=== PATIENT | female | born 1960 | race Hispanic/Latino ===

== ENCOUNTER 2017-12-11 22:09 | Emergency (ER) | payer MEDICAID, OTHER ==
[2017-12-11 22:23] VITALS: BP 143/93; PULSE 89; RESP 18; TEMP 97.7; O2SAT 96
--- NOTE | 2017-12-12 03:49 | C.PDOC ---
History Of Present Illness 57 year old female, with Hx of osteoarthritis, comes in to ED complaining of pain and swelling to left knee x1 week. Denies any trauma, weakness, or numbness. Time Seen by Provider: 12/11/17 22:48 Chief Complaint (Nursing): Lower Extremity Problem/Injury History Per: Patient History/Exam Limitations: no limitations Onset/Duration Of Symptoms: Days Current Symptoms Are (Timing): Still Present Past Medical History Reviewed: Historical Data, Nursing Documentation, Vital Signs Vital Signs: Last Vital Signs Temp 97.7 F 12/11/17 22:17 Pulse 89 12/11/17 22:17 Resp 18 12/11/17 22:17 BP 143/93 H 12/11/17 22:17 Pulse Ox 96 12/11/17 22:17 - Medical History PMH: Anxiety, HTN, Hypercholesterolemia, Chronic Pain (Right Knee Pain) Family History: States: No Known Family Hx - Social History Hx Tobacco Use: No Hx Alcohol Use: Yes Hx Substance Use: No - Immunization History Hx Tetanus Toxoid Vaccination: No Hx Influenza Vaccination: No Hx Pneumococcal Vaccination: No Review Of Systems Except As Marked, All Systems Reviewed And Found Negative. Constitutional: Negative for: Fever, Chills Musculoskeletal: Positive for: Other (Pain and swelling to L knee) Neurological: Negative for: Weakness, Numbness Physical Exam - Physical Exam Appears: Non-toxic, No Acute Distress Skin: Warm, Dry Head: Atraumatic, Normacephalic Eye(s): bilateral: Normal Inspection Oral Mucosa: Moist Extremity: Tenderness (to R knee), No Pedal Edema, Capillary Refill (less than 2 seconds), No Deformity, Swelling (of R knee), Other (no warmth or erythema) Extremity: Bilateral: Atraumatic, Normal Color And Temperature Pulses: Left Dorsalis Pedis: Normal, Right Dorsalis Pedis: Normal Neurological/Psych: Oriented x3, Normal Speech, Normal Motor, Normal Sensation Gait: Steady ED Course And Treatment O2 Sat by Pulse Oximetry: 96 (RA) Pulse Ox Interpretation: Normal Progress Note: Patient had corticosteroid injection to right knee several times but not to left knee.sPt offered toradol IM- states has not helped in the past.Pt is requesting oxycontin but it was explained to her that narcotics cannot be prescribed for chronic pain. Patient complained and asked for percocet and requested other narcotics PO in the ER. Then pt agreed to take toradol IM but left prior to meds were given Disposition - Disposition Disposition: ELOPEMENT - ER ONLY Disposition Time: 04:21 Condition: UNKNOWN Forms: [facility] (Faroese) - Clinical Impression Clinical Impression: Osteoarthritis - PA / [employer] / Resident Statement MD/DO has reviewed & agrees with the documentation as recorded. - Scribe Statement The provider has reviewed the documentation as recorded by the Scribe Thu Hester All medical record entries made by the Pazibfahad were at my direction and personally dictated by me. I have reviewed the chart and agree that the record accurately reflects my personal performance of the history, physical exam, medical decision making, and the department course for this patient. I have also personally directed, reviewed, and agree with the discharge instructions and disposition.
== END 2017-12-11 23:15 | disposition left against medical advice (07) ==
LOC: C.ER 22:09
DX: M19.90 Unspecified osteoarthritis, unspecified site (principal)

== ENCOUNTER 2018-03-02 09:44 | Emergency (ER) | payer MEDICAID, OTHER ==
[2018-03-02 09:50] VITALS: TEMP 97.5
[2018-03-02] MEDS ORDERED: Albuterol 0.083% Inhal Sol (2.5 mg/3 mL) UD INH ONE (10:15)
[2018-03-02] MEDS ORDERED: Albuterol 0.083% Inhal Sol (2.5 mg/3 mL) UD ONE (10:24)
--- NOTE | 2018-03-02 10:26 | C.PDOC ---
History Of Present Illness 57 year old female comes in to ED complaining of bilateral knee pain for the past several weeks. Patient initially denies any trauma but states that every time she tries to walk, she would fall down due to the knee pain. States her left knee is painful and swollen. Patient also complains of left rib pain that worsens when she takes a very deep breath. Otherwise she denies any chest pain, SOB, fever, or cough. Time Seen by Provider: 03/02/18 10:05 Chief Complaint (Nursing): Lower Extremity Problem/Injury History Per: Patient History/Exam Limitations: no limitations Onset/Duration Of Symptoms: Days Current Symptoms Are (Timing): Still Present Past Medical History Reviewed: Historical Data, Nursing Documentation, Vital Signs Vital Signs: Last Vital Signs Temp 97.5 F L 03/02/18 09:47 Pulse 91 H 03/02/18 09:47 Resp 18 03/02/18 09:47 BP 157/108 H 03/02/18 09:47 Pulse Ox 99 03/02/18 09:47 - Medical History PMH: Anxiety, HTN, Hypercholesterolemia, Chronic Pain (Right Knee Pain) Family History: States: No Known Family Hx - Social History Hx Tobacco Use: No Hx Alcohol Use: Yes Hx Substance Use: No - Immunization History Hx Tetanus Toxoid Vaccination: No Hx Influenza Vaccination: No Hx Pneumococcal Vaccination: No Review Of Systems Except As Marked, All Systems Reviewed And Found Negative. Constitutional: Negative for: Fever Cardiovascular: Negative for: Chest Pain Respiratory: Negative for: Cough, Shortness of Breath Musculoskeletal: Positive for: Other (Bilateral knee pain; L knee swelling; L rib pain) Physical Exam - Physical Exam Appears: Non-toxic, No Acute Distress Skin: Warm, Dry Head: Atraumatic, Normacephalic Eye(s): bilateral: Normal Inspection Oral Mucosa: Moist Neck: Supple Chest: Symmetrical Cardiovascular: Rhythm Regular, No Murmur Respiratory: Normal Breath Sounds, No Rales, No Rhonchi, No Wheezing Gastrointestinal/Abdominal: Soft, No Tenderness Extremity: Swelling (mild swelling of L knee, no erythema, no open wound, no lesions) Extremity: Bilateral: Other (Full ROM of both knee) Neurological/Psych: Oriented x3, Normal Speech, Normal Motor, Normal Sensation Gait: Steady ED Course And Treatment O2 Sat by Pulse Oximetry: 99 (RA) Pulse Ox Interpretation: Normal - Radiology CXR: Interpreted by Me, Viewed By Me CXR Interpretation: No: Infiltrates, Fracture, Pnemothorax, Other (Consolidation) - Other Rad Knee X-Ray X-Ray: Interpreted by Me, Viewed By Me Interpretation: No acute fractures. Osteophytes alongside tibial plateau and distal end of femur on the right knee. Medical Decision Making Medical Decision Making: Impression: Pleuritic pain, Arthritis Plan: --Knee X-Ray --Rib X-Ray --Albuterol nebulizer --Toradol 30 mg IVP Disposition - Disposition Referrals: Onofre Khan MD [Staff Provider] - Disposition: HOME/ ROUTINE Disposition Time: 12:05 Condition: IMPROVED Additional Instructions: Follow up with Dr Khan in a few days. Call for an appointment as soon as possible. Prescriptions: Ibuprofen [Motrin] 600 mg PO Q6 #20 tab Instructions: Pleuritic Chest Pain, Chronic Knee Pain Forms: [facility] ([place] Islander) - Clinical Impression Clinical Impression: Chronic knee pain, Costochondritis - Scribe Statement The provider has reviewed the documentation as recorded by the Lauren Hester Provider Attestation: All medical record entries made by the Pazibfahad were at my direction and personally dictated by me. I have reviewed the chart and agree that the record accurately reflects my personal performance of the history, physical exam, medical decision making, and the department course for this patient. I have also personally directed, reviewed, and agree with the discharge instructions and disposition.
[2018-03-02 12:06] VITALS: BP 146/94; PULSE 84; RESP 16
--- NOTE | 2018-03-02 12:42 | RAD ---
Date of service: 03/02/2018 PROCEDURE: Bilateral Knee Radiographs. HISTORY: pain when walking COMPARISON: None. FINDINGS: BONES: Right Knee: No acute fracture. Curvilinear calcific density adjacent to the medial epicondyle may be the result of old avulsion injury. Left Knee: Normal. No fracture. JOINTS: Right Knee: Medial osteoarthritis. Lateral and patellofemoral compartments are grossly preserved. Left knee: Medial osteoarthritis. Lateral and patellofemoral compartments are grossly preserved. SOFT TISSUES: Right Knee: Normal. Left Knee: Normal. JOINT EFFUSION: Right Knee: None. Left Knee: None. OTHER FINDINGS: None. IMPRESSION: Bilateral medial osteoarthritis. Possible old avulsion injury at the right medial epicondyle. No acute fracture.
--- NOTE | 2018-03-02 12:46 | RAD ---
Date of service: 03/02/2018 PROCEDURE: Radiographs of the Chest and Left Ribs. HISTORY: pain on breathing COMPARISON: None available. TECHNIQUE: Frontal radiograph of the chest and multiple oblique radiographs of the left ribs were obtained. FINDINGS: LEFT RIBS: There are fractures of the left 8th 9th and 10th ribs. There may be a 2 part fracture of the 8th rib. These fractures are minimally displaced. LUNGS: Clear. PLEURA: No pneumothorax or pleural fluid. CARDIOVASCULAR: Normal cardiac size. No pulmonary vascular congestion. No aortic atherosclerotic calcification present OTHER FINDINGS: None. IMPRESSION: Fractures of the left 8th through 10th ribs, minimally displaced. No pneumothorax.
[2018-03-02 13:10] VITALS: O2SAT 99
== END 2018-03-02 12:05 | disposition home or self-care (01) ==
LOC: C.ER 09:44
DX: G89.29 Other chronic pain (principal); M25.561 Pain in right knee; M25.562 Pain in left knee; M94.0 Chondrocostal junction syndrome [Tietze]; I10 Essential (primary) hypertension; E78.00 Pure hypercholesterolemia, unspecified
CPT/HCPCS: 71100; 73562; 96374; 99283; J1885

== ENCOUNTER 2018-03-09 04:35 | Emergency (ER) | payer OTHER ==
[2018-03-09 04:48] VITALS: BP 125/86; PULSE 68; RESP 18; TEMP 97.7; O2SAT 97
--- NOTE | 2018-03-09 05:16 | C.PDOC ---
History Of Present Illness 57 year old female presents stating she has a Hx of insomnia and it taking xanax but it is not helping. She is requesting to have her medications changed. Patient also reports a right ear ache and sore throat for the past 2 days. Denies fever or ear discharge. Time Seen by Provider: 03/09/18 05:06 Chief Complaint (Nursing): Medical Clearance History Per: Patient History/Exam Limitations: no limitations Onset/Duration Of Symptoms: Days (2) Current Symptoms Are (Timing): Still Present Recent travel outside of the [place]: No Past Medical History Reviewed: Historical Data, Nursing Documentation, Vital Signs Vital Signs: Last Vital Signs Temp 97.7 F 03/09/18 04:44 Pulse 68 03/09/18 04:44 Resp 18 03/09/18 04:44 BP 125/86 03/09/18 04:44 Pulse Ox 97 03/09/18 04:44 - Medical History PMH: Anxiety, HTN, Hypercholesterolemia, Chronic Pain (Right Knee Pain) Family History: States: Unknown Family Hx - Social History Hx Tobacco Use: No Hx Alcohol Use: Yes Hx Substance Use: No - Immunization History Hx Tetanus Toxoid Vaccination: No Hx Influenza Vaccination: No Hx Pneumococcal Vaccination: No Review Of Systems Constitutional: Negative for: Fever ENT: Positive for: Ear Pain, Throat Pain. Negative for: Ear Discharge Respiratory: Negative for: Cough, Shortness of Breath Physical Exam - Physical Exam Appears: Non-toxic Skin: Normal Color, Warm, Dry Head: Atraumatic, Normacephalic Eye(s): bilateral: Normal Inspection Ear(s): Bilateral: Normal Nose: Normal Oral Mucosa: Moist Throat: Normal, No Erythema, No Exudate Neck: Normal, Supple Chest: Symmetrical, No Tenderness Cardiovascular: Rhythm Regular Respiratory: Normal Breath Sounds, No Rales, No Rhonchi, No Wheezing Neurological/Psych: Oriented x3, Normal Speech ED Course And Treatment O2 Sat by Pulse Oximetry: 97 (Room air) Pulse Ox Interpretation: Normal Progress Note: Patient is resting comfortably in the ER in no acute distress, vitals are stable, will discharge home with instructions to follow up with PMD. 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 - Scribe Statement The provider has reviewed the documentation as recorded by the Scribe Simone Reyez All medical record entries made by the Scribe were at my direction and personally dictated by me. I have reviewed the chart and agree that the record accurately reflects my personal performance of the history, physical exam, medical decision making, and the department course for this patient. I have also personally directed, reviewed, and agree with the discharge instructions and disposition.
== END 2018-03-09 05:19 | disposition home or self-care (01) ==
LOC: C.ER 04:35
DX: G47.00 Insomnia, unspecified (principal); F19.10 Other psychoactive substance abuse, uncomplicated